=== PATIENT | female | born 1990 | race Caucasian/White ===

== ENCOUNTER 2018-07-31 11:06 | Emergency (ER) | payer OTHER ==
[~2018-07-31] VITALS: Ht 165.1 cm; Wt 65.8 kg
--- NOTE | 2018-07-31 11:18 | NUR ---
at bedside to see and examine patient.
--- NOTE | 2018-07-31 11:25 | NUR ---
patient taken down for CT
[2018-07-31] MEDS ORDERED: ACETAMINOPHEN/CODEINE 300-30 MG TABLET PO ONE (11:30)
[2018-07-31] MEDS ORDERED: ONDANSETRON ODT 4 MG TAB.RAPDIS SL ONE (11:30)
[2018-07-31] MEDS ORDERED: ACETAMINOPHEN/CODEINE 300-30 MG TABLET ONE (11:32)
[2018-07-31] MEDS ORDERED: ONDANSETRON ODT 4 MG TAB.RAPDIS ONE (11:32)
--- NOTE | 2018-07-31 11:40 | NUR ---
pt. back from Ct.
--- NOTE | 2018-07-31 11:44 | NUR ---
at bedside updating pt. of CT results.
--- NOTE | 2018-07-31 12:02 | NUR ---
Dcd instructions & prescriptions given to patient who verbalized understanding.Patient left room ambulatory steady gait and no c/o pain accompanied by .
== END 2018-07-31 12:43 | disposition home or self-care (01) ==
LOC: ER 11:06
DX: S16.1XXA Strain of muscle, fascia and tendon at neck level, initial encounter (principal); S00.81XA Abrasion of other part of head, initial encounter; W01.198A Fall on same level from slipping, tripping and stumbling with subsequent striking against other object, initial encounter; Y93.89 Activity, other specified; Y92.89 Other specified places as the place of occurrence of the external cause; Y99.8 Other external cause status
CPT/HCPCS: 70450; A4663; Q0162